=== PATIENT | female | born 1965 | race African-American/Black ===

== ENCOUNTER 2018-11-11 11:30 | Emergency (ER) | payer SELFPAY ==
[~2018-11-11 11:30] MED LIST: Lidocaine 1% 20 ML MDV ONE
[2018-11-11 11:52] LABS: Bilirubin Small (Negative); Blood, Urine Large (Negative); Glucose, Urine (Dipstick) 100 mg/dL (Negative); Leukocyte Large (Negative); Nitrite Positive (Negative); Protein, Urine (Dipstick) > or equal to 300 mg/dL (Neg-Trace)
[2018-11-11 11:53] LABS: Clarity Cloudy (Clear)
[2018-11-11 11:57] LABS: RBC/HPF GREATER THAN 50-TNTC HPF (0-3); WBC/HPF 21-50 HPF (0-3)
[2018-11-11 11:58] LABS: Bacteria/HPF 1+ HPF (None Seen)
[2018-11-11] MEDS ORDERED: cefTRIAXone\\ROCEPHIN 1 GM VIAL ONE (11:58)
[2018-11-11] MEDS ORDERED: Phenazopyridine HCl 97.5 MG TABLET ONE (11:58)
== END 2018-11-11 12:00 | disposition home or self-care (01) ==
LOC: MADERS 11:30
DX: N30.90 Cystitis, unspecified without hematuria (principal)
CPT/HCPCS: 81003; 81015; 87077; 87086; 87186; 96372; J0696; J2001

== ENCOUNTER 2019-07-14 21:51 | Emergency (ER) | payer SELFPAY ==
[2019-07-14] MEDS ORDERED: Aspirin Chewable 81 MG TAB ONE (22:12)
[2019-07-14] MEDS ORDERED: Nitroglycerin 0.4 MG TAB 1 EACH ONE (22:12)
[2019-07-14 22:34] LABS: #Basophils 0.1 thou/uL (0.0-0.2); %Basophils 1.3 % (0.0-1.0)
--- NOTE | 2019-07-14 22:43 | RAD ---
XR Knee Rt 4 View STANDARD History: Joint pain Comparison: None. Findings: Enthesopathic changes of the quadriceps tendon. Mild tricompartmental degenerative joint sp beth height loss. Moderate tricompartmental osteophytes. Mild soft tissue swelling. Impression: Chronic findings. No acute fracture or malalignment.
[2019-07-14 22:48] LABS: D-Dimer Test 0.49 *mcg/mL (0.27-0.43); INR-International Normal Ratio 0.9; PTT 30.7 SEC (22.9-36.1); Prothrombin Time 12.3 SEC (12.0-14.7)
[2019-07-14 22:49] LABS: #Eosinphils 0.2 thou/uL (0.0-0.7); #Lymphocytes 4.2 thou/uL (1.20-3.40); #Monocytes 0.8 thou/uL (0.11-0.59); #Neutrophils 4.6 thou/uL (1.40-6.50); %Lymphocytes 42.1 % (21.0-51.0); %Neutrophils 46.6 % (42.0-75.0); Hemoglobin 13.9 g/dL (12.0-16.0); Mean Corpuscular HGB CONC 30.7 g/dL (32.0-36.0); Mean Corpuscular Hemoglobin 27.2 pg (27.0-31.0); Mean Corpuscular Volume 88.7 fL (78.0-98.0); Mean Platelet Volume 7.2 fL (7.4-10.4); Platelet Count 257 thou/uL (130-400); Red Blood Cell (RBC) Count 5.12 mill/uL (4.20-5.40)
[2019-07-14 22:56] LABS: ALT (SGPT) 22 U/L (8-55); AST (SGOT) 21 U/L (5-34); Albumin 3.6 g/dL (3.5-5.0); Alkaline Phosphatase 94 U/L (40-150); Anion Gap 14 mmol/L (10-20); BUN (Urea Nitrogen) 11 mg/dL (9.8-20.1); Bilirubin, Total 0.3 mg/dL (0.2-1.2); Calc. Creatinine Clearance 0 mL/min (70-130); Carbon Dioxide 26 mmol/L (22-29); Chloride 102 mmol/L (98-107); Estimated GFR-MDRD Greater than 90; Globulin 3.8 g/dL (2.4-3.5); Glucose 115 mg/dL (70-105); Potassium 4.2 mmol/L (3.5-5.1); Protein, Total 7.4 g/dL (6.0-8.3); Sodium 138 mmol/L (136-145)
--- NOTE | 2019-07-14 22:56 | RAD ---
XR Chest 1 View Portable History: Chest pain Comparison: None. Findings: Exam is limited due to poor penetration. Heart size upper limits of normal. No pneumothorax . No definite airspace consolidation. Impression: Limited examination due to poor penetration. No definite acute intrathoracic abnormality.
== END 2019-07-14 23:41 | disposition short-term general hospital (02) ==
LOC: MADERS 21:51
DX: R07.9 Chest pain, unspecified (principal); R79.1 Abnormal coagulation profile; I10 Essential (primary) hypertension; I25.2 Old myocardial infarction; E78.5 Hyperlipidemia, unspecified; Z79.899 Other long term (current) drug therapy; Z79.82 Long term (current) use of aspirin
CPT/HCPCS: 71045; 80053; 83880; 84484; 85025; 85379; 85610; 85730; 93005; 94760

== ENCOUNTER 2021-01-09 09:38 | Outpatient (CLI) | payer SELFPAY ==
[2021-01-09 10:42] LABS: ALT (SGPT) 30 U/L (8-55); AST (SGOT) 24 U/L (5-34); Albumin 3.8 g/dL (3.5-5.0); Alkaline Phosphatase 106 U/L (40-110); Anion Gap 14 mmol/L (10-20); BUN (Urea Nitrogen) 9 mg/dL (9.8-20.1); Bilirubin, Total 0.4 mg/dL (0.2-1.2); Calc. Creatinine Clearance 0 mL/min (70-130); Calcium 10.1 mg/dL (7.8-10.44); Carbon Dioxide 30 mmol/L (22-29); Cardiac Risk 3.6 (Less than 4.5); Chloride 101 mmol/L (98-107); Cholesterol 134 mg/dl (< 200 Desired); Globulin 3.6 g/dL (2.4-3.5); Glucose 177 mg/dL (70-105); HDL Cholesterol 37 mg/dL (>60 Neg Risk); LDL Cholesterol, Calculated 81 mg/dL; Potassium 4.3 mmol/L (3.5-5.1); Protein, Total 7.4 g/dL (6.0-8.3); Sodium 141 mmol/L (136-145); Triglycerides 81 mg/dL (Less than 150)
[2021-01-09 10:46] LABS: #Basophils 0.1 thou/uL (0.0-0.2); #Eosinphils 0.4 thou/uL (0.0-0.7); #Lymphocytes 4.3 thou/uL (1.20-3.40); #Monocytes 0.7 thou/uL (0.11-0.59); #Neutrophils 4.6 thou/uL (1.40-6.50); %Basophils 1.2 % (0.0-1.0); %Eosinophils 3.6 % (0.0-10.0); %Lymphocytes 42.6 % (21.0-51.0); %Monocytes 7.1 % (0.0-10.0); %Neutrophils 45.5 % (42.0-75.0); Anisocytosis SLIGHT = 6-15 cells (100X) (0-5/hpf); Hemoglobin 15.1 g/dL (12.0-16.0); MDiff Complete? YES; Mean Corpuscular HGB CONC 29.6 g/dL (32.0-36.0); Mean Corpuscular Hemoglobin 27.1 pg (27.0-31.0); Mean Corpuscular Volume 91.6 fL (78.0-98.0); Mean Platelet Volume 7.9 fL (7.4-10.4); Platelet Count 240 thou/uL (130-400); Platelet Morphology Comment Appears Adequate; RBC Distribution Width 12.9 % (11.5-14.5); Red Blood Cell (RBC) Count 5.59 mill/uL (4.20-5.40); Target Cells SLIGHT = 2-5 cells (100X) (0-1/hpf); White Blood Cell (WBC) Count 10.1 thou/uL (4.8-10.8)
[2021-01-09 10:58] LABS: Thyroid Stimulating Hormone 1.8727 uIU/mL (0.35-4.94)
[2021-01-09 14:40] LABS: Hemoglobin A1c 8.1 % (4.0-6.0)
[2021-01-09 14:55] LABS: Creatinine, Urine 261.39 mg/dL (47-110); Microalbumin Urine 1.9 mg/dL (0.5-50.0); Microalbumin/Creat Ratio 7.3 mg/g (Less than 30)
[2021-01-09 15:02] LABS: Free T4 (Free Thyroxine) 1.01 ng/dL (0.70-1.48)
== END 2021-01-09 09:39 | disposition home or self-care (01) ==
LOC: MADLAB 09:38
PROVIDERS: ATTEND Family Medicine
DX: E11.9 Type 2 diabetes mellitus without complications (principal); E78.2 Mixed hyperlipidemia; E05.90 Thyrotoxicosis, unspecified without thyrotoxic crisis or storm
CPT/HCPCS: 36415; 80053; 80061; 82043; 83036; 84439; 84443; 85025

== ENCOUNTER 2021-02-08 03:40 | Emergency (ER) | payer SELFPAY ==
[2021-02-08 04:12] LABS: #Basophils 0.2 thou/uL (0.0-0.2); #Eosinphils 0.3 thou/uL (0.0-0.7); #Lymphocytes 4.4 thou/uL (1.20-3.40); #Monocytes 0.8 thou/uL (0.11-0.59); #Neutrophils 4.5 thou/uL (1.40-6.50); %Basophils 1.7 % (0.0-1.0); %Eosinophils 2.7 % (0.0-10.0); %Monocytes 8.3 % (0.0-10.0); %Neutrophils 44.4 % (42.0-75.0); Hemoglobin 15.6 g/dL (12.0-16.0); Mean Corpuscular HGB CONC 30.1 g/dL (32.0-36.0); Mean Corpuscular Hemoglobin 27.2 pg (27.0-31.0); Mean Corpuscular Volume 90.4 fL (78.0-98.0); Platelet Count 247 thou/uL (130-400); RBC Distribution Width 12.6 % (11.5-14.5); Red Blood Cell (RBC) Count 5.75 mill/uL (4.20-5.40); White Blood Cell (WBC) Count 10.2 thou/uL (4.8-10.8)
[2021-02-08 04:27] LABS: ALT (SGPT) 29 U/L (8-55); AST (SGOT) 28 U/L (5-34); Albumin 3.9 g/dL (3.5-5.0); Alkaline Phosphatase 94 U/L (40-110); Anion Gap 16 mmol/L (10-20); BUN (Urea Nitrogen) 24 mg/dL (9.8-20.1); Bilirubin, Total 0.4 mg/dL (0.2-1.2); Calc. Creatinine Clearance 0 mL/min (70-130); Calcium 10.4 mg/dL (7.8-10.44); Carbon Dioxide 28 mmol/L (22-29); Chloride 99 mmol/L (98-107); Glucose 153 mg/dL (70-105); Lipase 52 U/L (8-78); Potassium 4.5 mmol/L (3.5-5.1); Protein, Total 7.9 g/dL (6.0-8.3); Sodium 138 mmol/L (136-145)
[2021-02-08] MEDS ORDERED: Acetaminophen 500 MG TAB ONE (05:33)
== END 2021-02-08 06:19 | disposition short-term general hospital (02) ==
LOC: MADERS 03:40
DX: R07.9 Chest pain, unspecified (principal); R10.9 Unspecified abdominal pain; E66.01 Morbid (severe) obesity due to excess calories; R11.0 Nausea; E78.5 Hyperlipidemia, unspecified; E78.00 Pure hypercholesterolemia, unspecified; I10 Essential (primary) hypertension; I25.2 Old myocardial infarction; E11.9 Type 2 diabetes mellitus without complications; Z87.891 Personal history of nicotine dependence; Z79.899 Other long term (current) drug therapy; Z79.82 Long term (current) use of aspirin
CPT/HCPCS: 71045; 80053; 83690; 84484; 85025; 93005

== ENCOUNTER 2021-05-28 21:13 | Emergency (ER) | payer OTHER | END 2021-05-28 22:10 | disposition home or self-care (01) | LOC: MADERS 21:13 | DX: M79.605 Pain in left leg (principal); M54.5 Low back pain; R26.9 Unspecified abnormalities of gait and mobility; E78.5 Hyperlipidemia, unspecified; I25.2 Old myocardial infarction; I10 Essential (primary) hypertension; E11.9 Type 2 diabetes mellitus without complications; E78.00 Pure hypercholesterolemia, unspecified; Z87.891 Personal history of nicotine dependence; Z79.82 Long term (current) use of aspirin; Z79.899 Other long term (current) drug therapy | CPT/HCPCS: 99281 ==

== ENCOUNTER 2021-09-04 00:26 | Emergency (ER) | payer OTHER | END 2021-09-04 02:00 | disposition home or self-care (01) | LOC: MADERS 00:26 | DX: I89.0 Lymphedema, not elsewhere classified (principal); R26.9 Unspecified abnormalities of gait and mobility; E66.01 Morbid (severe) obesity due to excess calories; E78.5 Hyperlipidemia, unspecified; E78.00 Pure hypercholesterolemia, unspecified; I10 Essential (primary) hypertension; Z87.891 Personal history of nicotine dependence; Z79.01 Long term (current) use of anticoagulants; Z79.899 Other long term (current) drug therapy; Z79.82 Long term (current) use of aspirin | CPT/HCPCS: 99283 ==

== ENCOUNTER 2021-09-22 14:02 | Outpatient (CLI) | payer OTHER ==
[2021-09-22 14:35] LABS: #Basophils 0.1 thou/uL (0.0-0.2); #Eosinphils 0.2 thou/uL (0.0-0.7); #Lymphocytes 3.5 thou/uL (1.20-3.40); #Neutrophils 6.3 thou/uL (1.40-6.50); %Basophils 1.3 % (0.0-1.0); %Eosinophils 1.8 % (0.0-10.0); %Lymphocytes 31.3 % (21.0-51.0); %Monocytes 9.1 % (0.0-10.0); %Neutrophils 56.4 % (42.0-75.0); Hemoglobin 15.6 g/dL (12.0-16.0); Mean Corpuscular HGB CONC 30.6 g/dL (32.0-36.0); Mean Corpuscular Hemoglobin 27.3 pg (27.0-31.0); Mean Corpuscular Volume 89.2 fL (78.0-98.0); Mean Platelet Volume 7.7 fL (7.4-10.4); Platelet Count 255 thou/uL (130-400); RBC Distribution Width 13.9 % (11.5-14.5); Red Blood Cell (RBC) Count 5.72 mill/uL (4.20-5.40); White Blood Cell (WBC) Count 11.1 thou/uL (4.8-10.8)
[2021-09-22 14:42] LABS: ALT (SGPT) 28 U/L (8-55); AST (SGOT) 22 U/L (5-34); Albumin 3.8 g/dL (3.5-5.0); Alkaline Phosphatase 95 U/L (40-110); Anion Gap 12 mmol/L (10-20); BUN (Urea Nitrogen) 15 mg/dL (9.8-20.1); Bilirubin, Total 0.4 mg/dL (0.2-1.2); Calc. Creatinine Clearance 0 mL/min (70-130); Calcium 10.8 mg/dL (7.8-10.44); Carbon Dioxide 30 mmol/L (22-29); Chloride 102 mmol/L (98-107); Globulin 3.9 g/dL (2.4-3.5); Glucose 116 mg/dL (70-105); Potassium 3.8 mmol/L (3.5-5.1); Protein, Total 7.7 g/dL (6.0-8.3); Sodium 140 mmol/L (136-145)
[2021-09-22 14:56] LABS: Thyroid Stimulating Hormone 1.1373 uIU/mL (0.35-4.94)
[2021-09-22 21:55] LABS: Hemoglobin A1c 6.5 % (4.0-6.0)
[2021-09-22 22:07] LABS: Free T4 (Free Thyroxine) 1.15 ng/dL (0.70-1.48)
== END 2021-09-22 14:03 | disposition home or self-care (01) ==
LOC: MADLAB 14:02
PROVIDERS: ATTEND Family Medicine
DX: M25.552 Pain in left hip (principal); E11.9 Type 2 diabetes mellitus without complications; E05.90 Thyrotoxicosis, unspecified without thyrotoxic crisis or storm; I48.0 Paroxysmal atrial fibrillation; I50.32 Chronic diastolic (congestive) heart failure; M16.12 Unilateral primary osteoarthritis, left hip
CPT/HCPCS: 36415; 80053; 83036; 83880; 84439; 84443; 85025

== ENCOUNTER 2022-01-19 22:49 | Emergency (ER) | payer OTHER ==
[2022-01-19 23:51] LABS: Hemoglobin 15.3 g/dL (12.0-16.0); Lymphocytes 28 % (21-51); MDiff Complete? YES; Mean Corpuscular HGB CONC 31.6 g/dL (32.0-36.0); Mean Corpuscular Hemoglobin 28.1 pg (27.0-31.0); Mean Corpuscular Volume 89.1 fL (78.0-98.0); Mean Platelet Volume 6.8 fL (7.4-10.4); Monocytes 10 % (0-10); Neutrophil 62 % (42-75); Platelet Count 275 thou/uL (130-400); RBC Distribution Width 11.9 % (11.5-14.5); RBC Morphology Normal; Red Blood Cell (RBC) Count 5.44 mill/uL (4.20-5.40); White Blood Cell (WBC) Count 16.8 thou/uL (4.8-10.8)
[2022-01-19 23:52] LABS: ALT (SGPT) 18 U/L (8-55); AST (SGOT) 15 U/L (5-34); Albumin 3.7 g/dL (3.5-5.0); Alkaline Phosphatase 104 U/L (40-110); Anion Gap 15 mmol/L (10-20); BUN (Urea Nitrogen) 21 mg/dL (9.8-20.1); Bilirubin, Total 0.3 mg/dL (0.2-1.2); CK (CPK) 47 U/L (29-168); Calc. Creatinine Clearance 0 mL/min (70-130); Calcium 11.3 mg/dL (7.8-10.44); Carbon Dioxide 26 mmol/L (22-29); Chloride 104 mmol/L (98-107); Glucose 141 mg/dL (70-105); Potassium 4.3 mmol/L (3.5-5.1); Protein, Total 7.7 g/dL (6.0-8.3); Sodium 141 mmol/L (136-145)
[2022-01-19 23:53] LABS: BHCG - Serum Negative (NEGATIVE); Pregs Control Background? CLEAR/WHITE (CLR/WHITE); Pregs Control Bar Appear? YES (CONTROL BAR)
[2022-01-20] MEDS ORDERED: cefTRIAXone\\ROCEPHIN 1 GM VIAL ONE (00:32)
[2022-01-20] MEDS ORDERED: Azithromycin 250 MG TAB ONE (00:32)
[2022-01-20] MEDS ORDERED: Lidocaine 1% (PF) 30 ML VIAL ONE (00:33)
[2022-01-20 00:41] LABS: Bilirubin Negative (Negative); Blood, Urine Large (Negative); Clarity Cloudy (Clear); Glucose, Urine (Dipstick) Negative (Negative); Ketone, Urine Negative (Negative); Leukocyte Negative (Negative); Nitrite Negative (Negative); Protein, Urine (Dipstick) Trace mg/dL (Neg-Trace); pH, Urine 7.5 (5.0-9.0)
[2022-01-20 00:53] LABS: Bacteria/HPF Rare-Few HPF (None Seen); RBC/HPF Greater than 50 HPF (0-3); Squamous Epithelial 0-3 HPF (0-3); Transitional Epithelial None Seen HPF (None Seen); WBC/HPF 0-3 HPF (0-3)
== END 2022-01-20 00:50 | disposition home or self-care (01) ==
LOC: MADERS 22:49
DX: N93.8 Other specified abnormal uterine and vaginal bleeding (principal); D72.829 Elevated white blood cell count, unspecified; Z79.01 Long term (current) use of anticoagulants; E78.5 Hyperlipidemia, unspecified; I25.2 Old myocardial infarction; I10 Essential (primary) hypertension; Z87.891 Personal history of nicotine dependence; Z79.899 Other long term (current) drug therapy; Z79.84 Long term (current) use of oral hypoglycemic drugs
CPT/HCPCS: 80053; 81003; 81015; 82550; 84703; 85025; 87086; 96372; 99284; J0696; J2001

== ENCOUNTER 2022-05-05 19:45 | Emergency (ER) | payer OTHER, MEDICAID ==
[2022-05-05] MEDS ORDERED: Lidocaine 1% w/Epinephrine 1:100K 20 ML VIAL ONE (20:25)
[2022-05-05] MEDS ORDERED: HYDROcodone/Acetaminophen 10/325 mg Tablet ONE (20:54)
[2022-05-05] MEDS ORDERED: Clindamycin 150 MG CAP ONE (20:54)
== END 2022-05-05 21:06 | disposition home or self-care (01) ==
LOC: MADERS 19:45
DX: T81.31XA Disruption of external operation (surgical) wound, not elsewhere classified, initial encounter (principal); E11.9 Type 2 diabetes mellitus without complications; I25.2 Old myocardial infarction; E78.5 Hyperlipidemia, unspecified; E78.00 Pure hypercholesterolemia, unspecified; I10 Essential (primary) hypertension; Z87.891 Personal history of nicotine dependence; Z79.899 Other long term (current) drug therapy; Z79.84 Long term (current) use of oral hypoglycemic drugs; Z79.82 Long term (current) use of aspirin; Z79.01 Long term (current) use of anticoagulants
CPT/HCPCS: 12004

== ENCOUNTER 2022-05-11 08:10 | Emergency (ER) | payer OTHER, MEDICAID | END 2022-05-11 09:00 | disposition home or self-care (01) | LOC: MADERS 08:10 | DX: U07.1 COVID-19 (principal); J06.9 Acute upper respiratory infection, unspecified; E11.9 Type 2 diabetes mellitus without complications; I25.2 Old myocardial infarction; E78.5 Hyperlipidemia, unspecified; I10 Essential (primary) hypertension; Z79.899 Other long term (current) drug therapy | CPT/HCPCS: 99283; U0003; U0005 ==

== ENCOUNTER 2022-05-30 09:59 | Emergency (ER) | payer OTHER, MEDICAID | END 2022-05-30 11:11 | disposition home or self-care (01) | LOC: MADERS 09:59 | DX: M25.512 Pain in left shoulder (principal); I49.3 Ventricular premature depolarization; I10 Essential (primary) hypertension; E11.9 Type 2 diabetes mellitus without complications; E78.5 Hyperlipidemia, unspecified; I25.2 Old myocardial infarction; W19.XXXA Unspecified fall, initial encounter; Z87.891 Personal history of nicotine dependence; Z79.82 Long term (current) use of aspirin; Z79.84 Long term (current) use of oral hypoglycemic drugs; Z79.899 Other long term (current) drug therapy; Z95.5 Presence of coronary angioplasty implant and graft ==

== ENCOUNTER 2022-09-08 12:09 | Outpatient (CLI) | payer OTHER ==
[2022-09-08 12:33] LABS: Prothrombin Time 40.8 sec (12.0-14.7)
[2022-09-08 12:34] LABS: PTT 73.2 sec (22.9-36.1)
[2022-09-08 13:00] LABS: INR-International Normal Ratio 4.1
== END 2022-09-08 12:10 | disposition home or self-care (01) ==
LOC: MADLAB 12:09
PROVIDERS: ATTEND Internal Medicine
DX: I82.409 Acute embolism and thrombosis of unspecified deep veins of unspecified lower extremity (principal)
CPT/HCPCS: 36415; 85610; 85730

== ENCOUNTER 2022-09-14 06:53 | Outpatient (CLI) | payer OTHER ==
[2022-09-14 08:18] LABS: INR-International Normal Ratio 2.9; PTT 52.7 sec (22.9-36.1); Prothrombin Time 31.3 sec (12.0-14.7)
== END 2022-09-14 06:54 | disposition home or self-care (01) ==
LOC: MADLAB 06:53
PROVIDERS: ATTEND Internal Medicine
DX: Z51.81 Encounter for therapeutic drug level monitoring (principal); I82.409 Acute embolism and thrombosis of unspecified deep veins of unspecified lower extremity; Z79.01 Long term (current) use of anticoagulants
CPT/HCPCS: 36415; 85610; 85730

== ENCOUNTER 2022-09-21 11:41 | Outpatient (CLI) | payer OTHER ==
[2022-09-21 12:23] LABS: PTT 45.8 sec (22.9-36.1); Prothrombin Time 23.6 sec (12.0-14.7)
== END 2022-09-21 11:42 | disposition home or self-care (01) ==
LOC: MADLAB 11:41
PROVIDERS: ATTEND Internal Medicine
DX: Z51.81 Encounter for therapeutic drug level monitoring (principal); I82.409 Acute embolism and thrombosis of unspecified deep veins of unspecified lower extremity; Z79.01 Long term (current) use of anticoagulants
CPT/HCPCS: 36415; 85610; 85730

== ENCOUNTER 2022-09-26 04:41 | Emergency (ER) | payer OTHER ==
[2022-09-26] MEDS ORDERED: Dexamethasone 10 MG/ML VIAL ONE (05:44)
== END 2022-09-26 06:08 | disposition home or self-care (01) ==
LOC: MADERS 04:41
DX: J06.9 Acute upper respiratory infection, unspecified (principal); E03.9 Hypothyroidism, unspecified; E78.00 Pure hypercholesterolemia, unspecified; I10 Essential (primary) hypertension; Z87.891 Personal history of nicotine dependence; Z79.02 Long term (current) use of antithrombotics/antiplatelets; Z79.01 Long term (current) use of anticoagulants; Z79.899 Other long term (current) drug therapy; Z20.822 Contact with and (suspected) exposure to COVID-19
CPT/HCPCS: 87081; 87430; 87804; 96372; 99283; J1100; U0003; U0005

== ENCOUNTER 2022-09-27 19:53 | Outpatient (CLI) | payer OTHER ==
[2022-09-27 20:54] LABS: INR-International Normal Ratio 4.6; Prothrombin Time 45.3 sec (12.0-14.7)
== END 2022-09-27 19:54 | disposition home or self-care (01) ==
LOC: MADLAB 19:53
PROVIDERS: ATTEND Internal Medicine
DX: Z51.81 Encounter for therapeutic drug level monitoring (principal); I82.409 Acute embolism and thrombosis of unspecified deep veins of unspecified lower extremity; Z79.01 Long term (current) use of anticoagulants
CPT/HCPCS: 36415; 85610

== ENCOUNTER 2022-10-04 06:26 | Outpatient (CLI) | payer OTHER ==
[2022-10-04 06:53] LABS: INR-International Normal Ratio 1.7; Prothrombin Time 20.5 sec (12.0-14.7)
[2022-10-04 06:54] LABS: PTT 39.8 sec (22.9-36.1)
== END 2022-10-04 06:27 | disposition home or self-care (01) ==
LOC: MADLAB 06:26
PROVIDERS: ATTEND Internal Medicine
DX: Z51.81 Encounter for therapeutic drug level monitoring (principal); I82.409 Acute embolism and thrombosis of unspecified deep veins of unspecified lower extremity; Z79.01 Long term (current) use of anticoagulants
CPT/HCPCS: 36415; 85610; 85730

== ENCOUNTER 2022-11-24 23:03 | Emergency (ER) | payer OTHER ==
[2022-11-24 23:55] LABS: #Basophils 0.1 thou/uL (0.0-0.2); #Eosinphils 0.3 thou/uL (0.0-0.7); #Lymphocytes 5.1 thou/uL (1.20-3.40); #Monocytes 0.9 thou/uL (0.11-0.59); #Neutrophils 4.6 thou/uL (1.40-6.50); %Basophils 0.9 % (0.0-1.0); %Eosinophils 2.5 % (0.0-10.0); %Lymphocytes 46.1 % (21.0-51.0); %Monocytes 8.1 % (0.0-10.0); %Neutrophils 42.3 % (42.0-75.0); Hemoglobin 14.1 g/dL (12.0-16.0); Mean Corpuscular HGB CONC 31.4 g/dL (32.0-36.0); Mean Corpuscular Hemoglobin 26.6 pg (27.0-31.0); Mean Corpuscular Volume 84.7 fl (78.0-98.0); Mean Platelet Volume 7.8 fL (7.4-10.4); Platelet Count 266 10x3/uL (130-400); RBC Distribution Width 14.5 % (11.5-14.5); Red Blood Cell (RBC) Count 5.29 mill/uL (4.20-5.40)
[2022-11-25 00:17] LABS: ALT (SGPT) 15 U/L (8-55); AST (SGOT) 16 U/L (5-34); Albumin 3.5 g/dL (3.5-5.0); Alkaline Phosphatase 132 U/L (40-110); Anion Gap 16 mmol/L (10-20); BUN (Urea Nitrogen) 11 mg/dL (9.8-20.1); Bilirubin, Total 0.3 mg/dL (0.2-1.2); CK (CPK) 159 U/L (29-168); Calc. Creatinine Clearance 0 mL/min (70-130); Calcium 10.4 mg/dL (7.8-10.44); Carbon Dioxide 22 mmol/L (22-29); Chloride 108 mmol/L (98-107); Estimated GFR 96; Globulin 3.7 g/dL (2.4-3.5); Glucose 90 mg/dL (70-105); Potassium 4.1 mmol/L (3.5-5.1); Protein, Total 7.2 g/dL (6.0-8.3); Sodium 142 mmol/L (136-145)
[2022-11-25 00:24] LABS: CKMB 1.1 ng/mL (0-6.6)
== END 2022-11-25 01:00 | disposition home or self-care (01) ==
LOC: MADERS 23:03
DX: R07.9 Chest pain, unspecified (principal); I10 Essential (primary) hypertension; E11.9 Type 2 diabetes mellitus without complications; I25.2 Old myocardial infarction; E78.00 Pure hypercholesterolemia, unspecified; Z95.5 Presence of coronary angioplasty implant and graft; Z87.891 Personal history of nicotine dependence; Z79.01 Long term (current) use of anticoagulants; Z79.84 Long term (current) use of oral hypoglycemic drugs; Z79.899 Other long term (current) drug therapy
CPT/HCPCS: 71045; 80053; 82550; 82553; 83880; 85025; 93005; 94760

== ENCOUNTER 2024-11-10 16:48 | Emergency (ER) | payer OTHER ==
[2024-11-10 18:06] LABS: Eosinophils 1 % (0-10); Hematocrit 52.8 % (36.0-47.0); Hemoglobin 15.6 g/dL (12.0-16.0); Hypochromia SLIGHT = 6-15 cells (100X) (0-5/hpf); Lymphocytes 25 % (21-51); MDiff Complete? YES; Mean Corpuscular HGB CONC 29.5 g/dL (32.0-36.0); Mean Corpuscular Hemoglobin 25.9 pg (27.0-31.0); Mean Corpuscular Volume 87.9 fl (78.0-98.0); Mean Platelet Volume 7.7 fL (7.4-10.4); Monocytes 9 % (0-10); Neutrophil 60 % (42-75); Platelet Adequacy Comment Appears Adequate; Platelet Count 268 10x3/uL (130-400); White Blood Cell (WBC) Count 12.6 10x3/uL (4.8-10.8)
[2024-11-10 18:12] LABS: Sodium 140 mmol/L (136-145)
[2024-11-10 18:13] LABS: ALT (SGPT) 19 U/L (8-55); AST (SGOT) 20 U/L (5-34); Albumin 3.6 g/dL (3.5-5.0); Alkaline Phosphatase 119 U/L (40-110); Anion Gap 17 mmol/L (10-20); BUN (Urea Nitrogen) 10 mg/dL (9.8-20.1); Bilirubin, Total 0.2 mg/dL (0.2-1.2); Calc. Creatinine Clearance 0 mL/min (70-130); Calcium 10.8 mg/dL (7.8-10.44); Carbon Dioxide 23 mmol/L (22-29); Chloride 105 mmol/L (98-107); Estimated GFR 101; Globulin 4.5 g/dL (2.4-3.5); Glucose 83 mg/dL (70-105); Potassium 4.5 mmol/L (3.5-5.1); Protein, Total 8.1 g/dL (6.0-8.3)
[2024-11-10 18:14] LABS: Troponin I Less than 0.010 ng/mL (< 0.028)
== END 2024-11-10 20:54 | disposition home or self-care (01) ==
LOC: MADERS 16:48
DX: R07.9 Chest pain, unspecified (principal); E11.9 Type 2 diabetes mellitus without complications; E78.00 Pure hypercholesterolemia, unspecified; I10 Essential (primary) hypertension; Z95.5 Presence of coronary angioplasty implant and graft
CPT/HCPCS: 36415; 71045; 80053; 83880; 84484; 85025; 93005

== ENCOUNTER 2025-10-17 05:04 | Emergency (ER) | payer OTHER, MEDICAID ==
[2025-10-17] MEDS ORDERED: Ibuprofen 800 MG TAB ONE (05:32)
== END 2025-10-17 06:04 | disposition home or self-care (01) ==
LOC: MADERS 05:04
DX: J06.9 Acute upper respiratory infection, unspecified (principal); E11.9 Type 2 diabetes mellitus without complications; I10 Essential (primary) hypertension; Z87.891 Personal history of nicotine dependence; Z95.5 Presence of coronary angioplasty implant and graft
CPT/HCPCS: 87081; 87428; 87430; 99283